=== PATIENT | male | born 1985 | race African-American/Black ===

== ENCOUNTER 2020-07-25 19:58 | Emergency (ER) | payer OTHER, BC ==
[~2020-07-25] VITALS: Ht 162.6 cm; Wt 65.9 kg
[2020-07-25 21:17] LABS: BASO # 0.1 x10^3/uL (0.0-0.2); BASO % 0 % (0-3); EOS # 0.3 x10^3/uL (0.0-0.7); EOS % 3 % (0-3); HEMATOCRIT 47.6 % (39.0-53.0); HEMOGLOBIN 15.7 g/dL (13.0-17.5); LYMPH # 2.8 x10^3/uL (1.0-4.8); LYMPH % 22 % (24-48); MEAN CORPUSCULAR HEMOGLOBIN 30 pg (25-35); MEAN CORPUSCULAR HGB CONC 33 g/dL (31-37); MEAN CORPUSCULAR VOLUME 92 fL (79-100); MONO # 0.9 x10^3/uL (0.0-1.1); MONO % 7 % (0-9); NEUT # 8.6 x10^3uL (1.8-7.7); NEUT % 68 % (31-73); PLATELET COUNT 268 x10^3/uL (140-400); RED BLOOD COUNT 5.19 x10^6/uL (4.30-5.70); RED CELL DISTRIBUTION WIDTH 12.8 % (11.5-14.5); WHITE BLOOD COUNT 12.7 x10^3/uL (4.0-11.0)
[2020-07-25 21:25] LABS: CALCIUM 9.4 mg/dL (8.5-10.1); GFR 104.1; POTASSIUM 3.4 mmol/L (3.5-5.1)
[2020-07-25 21:32] LABS: ALBUMIN 4.6 g/dL (3.4-5.0); ALBUMIN/GLOBULIN RATIO 1.2 (1.0-1.7); TOTAL BILIRUBIN 0.2 mg/dL (0.2-1.0); TOTAL PROTEIN 8.5 g/dL (6.4-8.2)
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
[2020-07-25] MEDS ORDERED: IV NORMAL SALINE 50ML 50 ML ONE (23:27)
[2020-07-25] MEDS ORDERED: ceFAZolin SODIUM 1 GM VIAL ONE (23:27)
[2020-07-25] MEDS ORDERED: NEOMY/BACITR/POLYMYXIN OINT PACKET. TP ONE (23:45)
[2020-07-26] MEDS ORDERED: ONDANSETRON PF 4 MG/2 ML VIAL. IVP ONE
[2020-07-26 00:10] VITALS: BP 129/68
[2020-07-26] MEDS ORDERED: MORPHINE SULFATE 10 MG/ML SYRINGE. IV ONE (01:30)
== END 2020-07-26 02:10 | disposition short-term general hospital (02) ==
LOC: ER 19:58
DX: S12.401A Unspecified nondisplaced fracture of fifth cervical vertebra, initial encounter for closed fracture (principal); S12.500A Unspecified displaced fracture of sixth cervical vertebra, initial encounter for closed fracture; S01.81XA Laceration without foreign body of other part of head, initial encounter; S01.311A Laceration without foreign body of right ear, initial encounter; S06.9X9A Unspecified intracranial injury with loss of consciousness of unspecified duration, initial encounter; V43.52XA Car driver injured in collision with other type car in traffic accident, initial encounter; Y93.I9 Activity, other involving external motion; Y92.488 Other paved roadways as the place of occurrence of the external cause; Y99.8 Other external cause status
CPT/HCPCS: 12014; 36415; 70450; 70486; 72125; 80053; 85025; 96365; 96375; 99285; G0480; J0690; J2270; J2405; J3010

== ENCOUNTER 2020-07-29 20:53 | Emergency (ER) | payer OTHER, BC ==
[~2020-07-29] VITALS: Ht 162.6 cm; Wt 65.9 kg
[2020-07-29 20:53] VITALS: BP 109/57
[2020-07-29] MEDS ORDERED: ORPH-16 PO (21:28)
[2020-07-29] MEDS ORDERED: OXYC1TAB15 PO (21:28)
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
[2020-07-29] MEDS ORDERED: ORPHENADRINE CITRATE 60 MG/2 ML VIAL. IM ONE (21:30)
[2020-07-29] MEDS ORDERED: oxyCODONE/APAP 5/325 1 TAB TABLET PO ONE (21:30)
== END 2020-07-29 22:20 | disposition home or self-care (01) ==
LOC: ER 20:53
DX: S12.491D Other nondisplaced fracture of fifth cervical vertebra, subsequent encounter for fracture with routine healing (principal); S12.591D Other nondisplaced fracture of sixth cervical vertebra, subsequent encounter for fracture with routine healing; X58.XXXD Exposure to other specified factors, subsequent encounter
CPT/HCPCS: 96372; 99283; J2360

== ENCOUNTER → 2020-08-04 | Outpatient (CLI) | payer OTHER, BC ==
[2020-07-29 20:53] VITALS: BP 109/57
[~2020-08-04] MED LIST: ORPH-16 PO; OXYC1TAB15 PO
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
== END ==
LOC: RAD 13:43
PROVIDERS: ATTEND Neurological Surgery
DX: S12.400D Unspecified displaced fracture of fifth cervical vertebra, subsequent encounter for fracture with routine healing (principal); S12.500D Unspecified displaced fracture of sixth cervical vertebra, subsequent encounter for fracture with routine healing; X58.XXXD Exposure to other specified factors, subsequent encounter
CPT/HCPCS: 72040

== ENCOUNTER → 2020-09-12 | Outpatient (CLI) | payer OTHER, BC ==
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
== END ==
LOC: CT 08:02
PROVIDERS: ATTEND Neurological Surgery
DX: S12.400D Unspecified displaced fracture of fifth cervical vertebra, subsequent encounter for fracture with routine healing (principal); S12.500D Unspecified displaced fracture of sixth cervical vertebra, subsequent encounter for fracture with routine healing; X58.XXXD Exposure to other specified factors, subsequent encounter
CPT/HCPCS: 72125

== ENCOUNTER → 2020-10-03 | Outpatient (CLI) | payer OTHER, BC ==
--- NOTE | 2020-10-03 14:42 | RAD ---
EXAM: Cervical spine CT without contrast. HISTORY: Fracture follow-up. TECHNIQUE: Computed tomographic images of the cervical spine were obtained without contrast. Multipla uzma reformatting was performed. *One or more of the following individualized dose reduction techniques were utilized for this examina tion: 1. Automated exposure control. 2. Adjustment of the mA and/or kV according to patient size. 3. Use of iterative reconstruction technique. COMPARISON: 09/12/2020. FINDINGS: There has been no interval change of nondisplaced fractures involving the left posterior la teral endplate of C5 and left C6 superior articular facet. No new fracture is seen. The disc spaces a re preserved. There is no lytic or sclerotic osseous lesion. The visualized portions of the brain and calvarium are unremarkable. There is no neck lymphadenopathy. There is no significant foraminal or c entral canal stenosis. IMPRESSION: 1. No change in nondisplaced fractures involving the left posterior lateral endplate of C5 and left C 6 superior articular facet. 2. No evidence of cervical spine stenosis. Electronically signed by: Mallory Camacho MD (10/03/2020 2:39 PM) [id number]
== END ==
LOC: CT 11:26
PROVIDERS: ATTEND Neurological Surgery
DX: S12.500A Unspecified displaced fracture of sixth cervical vertebra, initial encounter for closed fracture (principal); X58.XXXA Exposure to other specified factors, initial encounter; Y93.89 Activity, other specified; Y92.89 Other specified places as the place of occurrence of the external cause; Y99.8 Other external cause status
CPT/HCPCS: 72125

== ENCOUNTER → 2020-11-21 | Outpatient (CLI) | payer OTHER, BC ==
--- NOTE | 2020-11-21 09:44 | RAD ---
PQRS Compliance Statement: One or more of the following individualized dose reduction techniques were utilized for this examinat ion: 1. Automated exposure control 2. Adjustment of the mA and/or kV according to patient size 3. Use of iterative reconstruction technique CT CERVICAL SPINE 11/21/2020 8:45 AM Indication: C5-C6 fracture COMPARISON: CT cervical spine 10/03/2020, 09/12/2020 TECHNIQUE: Multiple axial CT images of the cervical spine were obtained without intravenous contrast. Coronal and sagittal reformats are provided. FINDINGS: There is interval osseous bridging involving the nondisplaced fracture of the superior articular face t of C6 similar appearance of a minimally displaced fracture of the posterior inferior endplate of C5 . No new fractures identified. Vertebral body heights are maintained. Disc heights are maintained. Po sterior elements are otherwise intact. Craniocervical junction is normal. No compressive epidural hem atoma. No significant disc herniation, neuroforaminal or spinal canal stenosis. No prevertebral edema . Sella and suprasellar cistern appear normal. Skull base is intact. IMPRESSION: 1. No significant interval change involving a minimally displaced fracture of the posterior inferior endplate of C5. Cortical fragment measures approximately 6 mm without neuroforaminal or spinal canal stenosis. 2. Interval osseous bridging involving a nondisplaced fracture of the superior articular facet of C6. Electronically signed by: Cris Masterson MD (11/21/2020 9:41 AM) [id number]
== END ==
LOC: CT 08:26
PROVIDERS: ATTEND Neurological Surgery
DX: S12.501A Unspecified nondisplaced fracture of sixth cervical vertebra, initial encounter for closed fracture (principal); X58.XXXA Exposure to other specified factors, initial encounter; Y93.89 Activity, other specified; Y92.89 Other specified places as the place of occurrence of the external cause; Y99.8 Other external cause status
CPT/HCPCS: 72125

== ENCOUNTER → 2020-12-09 | Outpatient (CLI) | payer OTHER, BC ==
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
== END ==
LOC: RAD 11:38
PROVIDERS: ATTEND Neurological Surgery
DX: S12.500A Unspecified displaced fracture of sixth cervical vertebra, initial encounter for closed fracture (principal); X58.XXXA Exposure to other specified factors, initial encounter; Y93.89 Activity, other specified; Y92.89 Other specified places as the place of occurrence of the external cause; Y99.8 Other external cause status
CPT/HCPCS: 72040

== ENCOUNTER → 2021-02-03 | Outpatient (CLI) | payer BC, OTHER ==
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
== END ==
LOC: CT 10:26
PROVIDERS: ATTEND Neurological Surgery
DX: S12.500D Unspecified displaced fracture of sixth cervical vertebra, subsequent encounter for fracture with routine healing (principal); S12.400D Unspecified displaced fracture of fifth cervical vertebra, subsequent encounter for fracture with routine healing; X58.XXXD Exposure to other specified factors, subsequent encounter
CPT/HCPCS: 72125

== ENCOUNTER 2021-06-25 11:57 | Emergency (ER) | payer BC ==
[~2021-06-25] VITALS: Ht 162.6 cm; Wt 65.9 kg
--- NOTE | 2021-06-25 12:55 | PHYS DOC ---
Past History Past Medical History: No Pertinent History (KWESI LOU) Past Surgical History: Other Additional Past Surgical Histo: lt wrist and lt ankle (KWESI LOU) Additional Smoking Information: Vape Alcohol Use: None (KWESI LOU) General Adult EDM: Chief Complaint: COUGH HPI: HPI: Patient is a 35 year old male who presents with 4-day history of chills, body aches, fatigue, nasal congestion, sore throat and chest pain. Patient describes his chest pain as an intermittent pressure, as if someone is pushing on his chest. His sore throat has progressively worsened. Patient received Pfizer vaccine x2 this fall, but has not had a flu shot this season. Patient denies objective fever, palpitations, shortness of breath and productive cough. (KWESI LOU) Review of Systems: Review of Systems: ROS negative or noncontributory except as mentioned in HPI. (KWESI LOU) Allergies: Allergies: Allergies Coded Allergies Type Severity Reaction Last Updated Verified No Known Drug Allergies 07/25/20 No (KWESI LOU) Physical Exam: PE: Constitutional: Well developed, well nourished, no acute distress, non-toxic appearance. HENT: Normocephalic, atraumatic, bilateral external ears normal, oropharynx moist, no oral exudates, nasal turbinates erythematous, significant mucus in bilateral nares. Eyes: EOMI, conjunctiva normal, no discharge. Neck: Normal range of motion, no tenderness, supple, no stridor. Cardiovascular: Heart rate regular rhythm, no murmur. Lungs & Thorax: Bilateral breath sounds clear to auscultation. Skin: Warm, dry, no erythema, no rash. Neurologic: Alert and oriented x4, steady and symmetrical gait, no focal deficits noted. (KWESI LOU) Current Patient Data: Labs: Laboratory Tests Test 06/25/21 12:15 06/25/21 13:10 Influenza Type A (Rapid) Negative (NEGATIVE) Influenza Type B (Rapid) Negative (NEGATIVE) White Blood Count 4.9 x10^3/uL (4.0-11.0) Red Blood Count 4.73 x10^6/uL (4.30-5.70) Hemoglobin 14.5 g/dL (13.0-17.5) Hematocrit 42.7 % (39.0-53.0) Mean Corpuscular Volume 90 fL (79-100) Mean Corpuscular Hemoglobin 31 pg (25-35) Mean Corpuscular Hemoglobin Concent 34 g/dL (31-37) Red Cell Distribution Width 13.1 % (11.5-14.5) Platelet Count 222 x10^3/uL (140-400) Neutrophils (%) (Auto) 51 % (31-73) Lymphocytes (%) (Auto) 25 % (24-48) Monocytes (%) (Auto) 19 % (0-9) Eosinophils (%) (Auto) 4 % (0-3) Basophils (%) (Auto) 1 % (0-3) Neutrophils # (Auto) 2.5 x10^3uL (1.8-7.7) Lymphocytes # (Auto) 1.2 x10^3/uL (1.0-4.8) Monocytes # (Auto) 0.9 x10^3/uL (0.0-1.1) Eosinophils # (Auto) 0.2 x10^3/uL (0.0-0.7) Basophils # (Auto) 0.0 x10^3/uL (0.0-0.2) Prothrombin Time 10.7 SEC (9.4-11.4) Prothromb Time International Ratio 1.0 (0.9-1.1) Activated Partial Thromboplast Time 27 SEC (23-33) Sodium Level 139 mmol/L (136-145) Potassium Level 3.8 mmol/L (3.5-5.1) Chloride Level 103 mmol/L (98-107) Carbon Dioxide Level 27 mmol/L (21-32) Anion Gap 9 (6-14) Blood Urea Nitrogen 10 mg/dL (8-26) Creatinine 0.9 mg/dL (0.7-1.3) Estimated GFR (Cockcroft-Gault) 116.9 BUN/Creatinine Ratio 11 (6-20) Glucose Level 81 mg/dL (70-99) Calcium Level 8.6 mg/dL (8.5-10.1) Magnesium Level 2.3 mg/dL (1.8-2.4) Total Bilirubin 0.3 mg/dL (0.2-1.0) Aspartate Amino Transf (AST/SGOT) 28 U/L (15-37) Alanine Aminotransferase (ALT/SGPT) 19 U/L (16-63) Alkaline Phosphatase 76 U/L (46-116) Troponin I High Sensitivity 30 ng/L (4-75) AS-Qcf-C-Type Natriuretic Peptide 15 pg/mL (0-124) Total Protein 7.7 g/dL (6.4-8.2) Albumin 4.0 g/dL (3.4-5.0) Albumin/Globulin Ratio 1.1 (1.0-1.7) Vital Signs: Vital Signs Date Time Temp Pulse Resp B/P (MAP) Pulse Ox O2 Delivery O2 Flow Rate FiO2 06/25/21 12:20 98.1 67 16 114/64 (81) 100 Room Air (KWESI LOU) EKG: EKG: EKG Interpreted by Dr. Herrera at 1309: Regular rate and rhythm 62 bpm with no ectopic beats. QT 356 ms/QTc [address] elevation with reciprocal changes, no STEMI. (KWESI LOU) Radiology/Procedures: Radiology/Procedures: PROCEDURE: CHEST AP ONLY Single view of the chest. 06/25/2021 12:54 PM Indication: Reason: CP / Spl. Instructions: / History: Comparison: Chest radiograph May 25, 2020 Findings: S shaped scoliosis noted. No pneumothorax or pleural effusion is seen. No focal infiltrate is seen. No acute osseous changes are seen. IMPRESSION: No evidence of acute cardiopulmonary abnormality Electronically signed by: Juan Armenta MD (06/25/2021 1:00 PM) [id number] (KWESI LOU) Heart Score: C/O Chest Pain: Yes HEART Score for Chest Pain: HEART Score for Chest Pain Response (Comments) Value History Moderately Suspicious [address] Depression 2 Age < 45 0 Risk Factors 1 or 2 Risk Factors 1 Troponin < Normal Limit 0 Total 4 Risk Factors: Risk Factors: Family history of CAD (uncle of [place] age 36) Risk Scores: Score 0 - 3: 2.5% MACE over next 6 weeks - Discharge Home Score 4 - 6: 20.3% MACE over next 6 weeks - Admit for Clinical Observation Score 7 - 10: 72.7% MACE over next 6 weeks - Early Invasive Strategies (KWESI LOU) Course & Med Decision Making: Course & Med Decision Making Pertinent Labs and Imaging studies reviewed. (See chart for details) Patient is a 35-year-old male without significant past medical history who presents with several symptoms concerning for viral illness, COVID-19 cannot be excluded. He also has a complaint of substernal chest pressure that is intermittent. Patient states he had a first-degree family member who of [place] at age 36. Work-up today will include labs that include troponin, chest x-ray, EKG, swab for influenza A&B. EKG is concerning for possible early acute coronary syndrome. Patient provided with sublingual nitro 4mg as well as chewable ASA 324mg. Patient was made aware of findings and all of his questions were answered. He does agree to be transferred [facility]. Dr. Herrera spoke to learn to swim instructor Dr. Lopez, who concurs that we do not need to activate code STEMI. However, patient does appear to have some changes and his presentation is concerning for unstable angina. Patient will be transferred to [facility], accepted by hospitalist Dr. Hall. COVID PCR swab as well as UDS will be added to workup prior to transfer. (KWESI LOU) Course & Med Decision Making I was the Attending physician on the above date of service of this patient. This patient was evaluated, examined, treated, and dispositioned from the emergency department by the mid-level practitioner. I reviewed patient's initial EKG which was concerning for lateral wall elevation with T wave inversion noted in lead III. Initial EKG and subsequent EKG reviewed with on-call learn to swim instructor at [facility] who deemed no STEMI. With that said, it was recomme nded to start patient on heparin drip, administered 325 mg aspirin and transfer for further inpatient medical management and consideration for catheterization. Patient ultimately found to be COVID-positive, I question etiology to be viral in nature. With that said, patient does admit early cardiac disease and second- degree relative and absence of any other concerning risk factors, exposures etc. Patient agreeable to hospital transfer for plan of care as documented by midlevel practitioner Electronically signed, Rupert Herrera DO (RUPERT HERRERA DO) [place] Disclaimer: [place] Disclaimer: This electronic medical record was generated, in whole or in part, using a voice recognition dictation system. (KWESI LOU) Departure Departure: Impression: Primary Impression: COVID-19 Additional Impression: ECG abnormality Disposition: 02 [facility] Condition: GUARDED Referrals: NOA VILLANUEVA (PCP) KWESI LOU Jun 25, 2021 12:55 RUPERT HERRERA DO Jun 28, 2021 02:25
--- NOTE | 2021-06-25 13:02 | RAD ---
Single view of the chest. 06/25/2021 12:54 PM Indication: Reason: CP / Spl. Instructions: / History: Comparison: Chest radiograph May 25, 2020 Findings: S shaped scoliosis noted. No pneumothorax or pleural effusion is seen. No focal infiltrate is seen. No acute osseous changes are seen. IMPRESSION: No evidence of acute cardiopulmonary abnormality Electronically signed by: Juan Armenta MD (06/25/2021 1:00 PM) [id number]
--- NOTE | 2021-06-25 13:14 | EKG ---
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
[2021-06-25 13:22] LABS: INFLUENZA A PATIENT NEGATIVE (NEGATIVE); INFLUENZA B PATIENT NEGATIVE (NEGATIVE)
[2021-06-25] MEDS ORDERED: NITROGLYCERIN SUBLINGUAL 0.4 MG BOTTLE OF 25. SL PRN ×2 (13:30→13:45)
[2021-06-25] MEDS ORDERED: ASPIRIN CHEWABLE 81 MG TABLET. PO ONE (13:30)
[2021-06-25] MEDS ORDERED: HEPARIN 25,000UTS/250ML PREMIX 250 ML IV PRN (13:45)
[2021-06-25] MEDS ORDERED: HEPARIN for IV BOLUS 10,000 UNIT/10 ML VIAL. IV ONE (13:45)
[2021-06-25] MEDS ORDERED: HEPARIN for IV BOLUS 10,000 UNIT/10 ML VIAL. IV PRN (13:45)
[2021-06-25 13:56] LABS: CALCIUM 8.6 mg/dL (8.5-10.1); CREATININE 0.9 mg/dL (0.7-1.3); GFR 116.9; POTASSIUM 3.8 mmol/L (3.5-5.1)
--- NOTE | 2021-06-25 13:59 | EKG ---
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
[2021-06-25 14:00] LABS: BASO % 1 % (0-3); EOS # 0.2 x10^3/uL (0.0-0.7); EOS % 4 % (0-3); HEMATOCRIT 42.7 % (39.0-53.0); HEMOGLOBIN 14.5 g/dL (13.0-17.5); LYMPH # 1.2 x10^3/uL (1.0-4.8); LYMPH % 25 % (24-48); MEAN CORPUSCULAR HEMOGLOBIN 31 pg (25-35); MEAN CORPUSCULAR HGB CONC 34 g/dL (31-37); MEAN CORPUSCULAR VOLUME 90 fL (79-100); MONO # 0.9 x10^3/uL (0.0-1.1); MONO % 19 % (0-9); NEUT # 2.5 x10^3uL (1.8-7.7); NEUT % 51 % (31-73); PLATELET COUNT 222 x10^3/uL (140-400); RED BLOOD COUNT 4.73 x10^6/uL (4.30-5.70); RED CELL DISTRIBUTION WIDTH 13.1 % (11.5-14.5); WHITE BLOOD COUNT 4.9 x10^3/uL (4.0-11.0)
[2021-06-25 14:08] LABS: ALBUMIN/GLOBULIN RATIO 1.1 (1.0-1.7); MAGNESIUM 2.3 mg/dL (1.8-2.4); TOTAL BILIRUBIN 0.3 mg/dL (0.2-1.0); TOTAL PROTEIN 7.7 g/dL (6.4-8.2)
[2021-06-25 17:00] VITALS: BP 107/56
== END 2021-06-25 18:42 | disposition short-term general hospital (02) ==
LOC: ER 11:57
DX: U07.1 COVID-19 (principal); R94.31 Abnormal electrocardiogram [ECG] [EKG]; F17.200 Nicotine dependence, unspecified, uncomplicated
CPT/HCPCS: 36415; 71045; 80053; 83735; 83880; 84443; 84484; 85025; 85610; 85730; 87426; 87428; 93005; 96365; 96376; 99285; J1644